=== PATIENT | female | born 1950 | race Caucasian/White ===

== ENCOUNTER → 2019-03-25 | Outpatient (CLI) | payer OTHER ==
[~2019-03-25] MED LIST: B12/1TAB PO; DESV50TA PO; RIVA20TA2 PO; SOTA120T PO
--- NOTE | 2019-03-29 11:24 | CARD ---
MR#: [id number] Date of Study: 03/25/2019 Ordering Physician: SHABNAM CALDERON, Referring Physician: SHABNAM CALDERON Tech: Ivonne Roy RDCS APPROVED REPORT EXAM: Two-dimensional and M-mode echocardiogram with Doppler and color Doppler. Other Information Quality : Technically LimitedHR: 74bpm Rhythm : NSRTechnically limited study due to body habitus. INDICATION Chest Pain 2D DIMENSIONS RVDd3.4 (2.9-3.5cm)Left Atrium(2D)4.4 (1.6-4.0cm) IVSd1.3 (0.7-1.1cm)Aortic Root(2D)2.6 (2.0-3.7cm) LVDd3.8 (3.9-5.9cm)LVOT Diameter1.8 (1.8-2.4cm) PWd1.2 (0.7-1.1cm)LVDs2.0 (2.5-4.0cm) FS (%) 47.6 %SV50.2 ml Aortic Valve AoV Peak Edward.196.2cm/sAoV VTI44.6cm AO Peak GR.15.4mmHgLVOT Peak Edward.168.2cm/s AO Mean GR.9mmHgAVA (VMAX)2.18cm2 ROGER (VTI)2.20cm2 Mitral Valve MV E Myppvzmd151.4cm/sMV E Peak Gr.124mmHg MV DECEL NMFR950wkQW A Mymgjtdp337.5cm/s MV E Mean Gr.5mmHgE/A Ratio1.3 Pulmonary Valve PV Peak Ibuwfoxu685.5cm/s Tricuspid Valve TR P. Xlvveegm017yx/sRAP QELZUSER8iqKk TR Peak Gr.33qsTfFZAP23usGk Pulmonary Vein S1 Gbpkutzz14.1cm/sD2 Snqtnhac94.6cm/s PVa rvfabqlo677srjp LEFT VENTRICLE The left ventricle is normal size. There is mild concentric left ventricular hypertrophy. The left ve ntricular systolic function is normal. The ejection fraction is 65-70%. There is normal LV segmental wall motion. Transmitral Doppler flow pattern is Grade II-pseudonormal filling dynamics. RIGHT VENTRICLE The right ventricle is normal size. There is normal right ventricular wall thickness. The right ventr icular systolic function is normal. ATRIA The left atrium is mildly dilated. The right atrium size is normal. The interatrial septum is intact with no evidence for an atrial septal defect or patent foramen ovale as noted on 2-D or Doppler imagi ng. AORTIC VALVE The aortic valve is mildly sclerotic. The aortic valve is trileaflet. Doppler and Color Flow revealed no significant aortic regurgitation. There is no significant aortic valvular stenosis. MITRAL VALVE Mitral annular calcification is mild. There is no evidence of mitral valve prolapse. There is mild mi tral valve stenosis. Calculated mitral valve area is 1.9 cm2 with maximum pressure gradient of 15 mmH g and mean pressure gradient of 5.5 mmHg. Doppler and Color-flow revealed mild mitral regurgitation. TRICUSPID VALVE The tricuspid valve is normal in structure and function. Doppler and Color Flow revealed mild tricusp id regurgitation. The PA pressure was estimated at 32 mmHg. There is no tricuspid valve prolapse or v egetation. There is no tricuspid valve stenosis. PULMONIC VALVE The pulmonic valve is not well visualized. GREAT VESSELS The aortic root is normal in size. The ascending aorta is normal in size. The IVC was not visualized. PERICARDIAL EFFUSION There is no evidence of significant pericardial effusion. Critical Notification Critical Value: No <Conclusion> The left ventricle is normal size. The left ventricular systolic function is normal. The ejection fraction is 65-70%. There is mild concentric left ventricular hypertrophy. There is no significant aortic valvular stenosis. Doppler and Color Flow revealed no significant aortic regurgitation. Doppler and Color-flow revealed mild mitral regurgitation. There is mild mitral valve stenosis. Calculated mitral valve area is 1.9 cm2 with maximum pressure gradient of 15 mmHg and mean pressure g radient of 5.5 mmHg. Doppler and Color Flow revealed mild tricuspid regurgitation. The PA pressure was estimated at 32 mmHg. Signed by : Rickey Hanson MD Electronically Approved : 03/25/2019 11:54:09
== END | disposition home or self-care (01) ==
LOC: ECHO 14:00
PROVIDERS: ATTEND Internal Medicine Cardiovascular Disease
DX: I08.3 Combined rheumatic disorders of mitral, aortic and tricuspid valves (principal)
CPT/HCPCS: 93306

== ENCOUNTER → 2019-03-31 | Outpatient (CLI) | payer MEDICARE ==
--- NOTE | 2019-03-31 17:32 | RAD ---
PELVIS W/TV History: Postmenopausal bleeding Comparison: None. Findings: Multiple transabdominal sonographic images of pelvis are submitted. Uterus measured 10.6 x 4.8 x 5.6 cm. Ovaries are not well-visualized this portion of exam due to bowel gas. Transvaginal ultrasound: Multiple transvaginal sonographic images of the pelvis are submitted. Endometrium is thickened about 1.1 cm, not associated with significant hypervascularity on color Doppler imaging. Neither ovary is well visualized due to bowel gas and bowel. No free fluid is demonstrated. Impression: 1. Endometrium is thickened about 1.1 cm, could be seen with hyperplasia although neoplasm not excluded. 2. Ovaries are not visualized on this exam. Electronically signed by: Hector Downey MD (03/31/2019 5:29 PM) [id number]
== END | disposition home or self-care (01) ==
LOC: US 13:36 → EDUNIT# 15:30
PROVIDERS: ATTEND Obstetrics & Gynecology
DX: N95.0 Postmenopausal bleeding (principal)
CPT/HCPCS: 76830; 76856

== ENCOUNTER 2019-06-03 07:59 | Day surgery (SDC) | payer OTHER ==
[~2019-06-03 07:59] MED LIST changes: +HYDROmorphone 2 MG/ML VIAL IV PRN; +IV RINGERS,LACTATED 1000ML 1,000 ML IV SCH; +MISO200T PO; +MORPHINE SULFATE 2 MG/ML VIAL. IV PRN; +PROCHLORPERAZINE 10 MG/2 ML VIAL. IV PRN; +VALS320T2 PO; +fentaNYL PF VIAL 100 MCG/2 ML VIAL IV PRN
[2019-06-03] MEDS ORDERED: LIDOCAINE 2% PF 5 ML VIAL. ONE (08:42)
[2019-06-03] MEDS ORDERED: KETOROLAC 30 MG/ML VIAL. ONE (08:42)
[2019-06-03] MEDS ORDERED: DEXAMETHASONE SOD PHOS 4 MG/ML VIAL ONE (08:42)
[2019-06-03] MEDS ORDERED: ONDANSETRON PF 4 MG/2 ML VIAL. ONE (08:42)
[2019-06-03] MEDS ORDERED: SEVOFLURANE 31 TO 60 MINUTES. IH ONE (08:42)
[2019-06-03] MEDS ORDERED: PROPOFOL 20 ML IV ONE (08:42)
[2019-06-03] MEDS ORDERED: HEPARIN for SUB-Q USE 5,000 UNIT/ML VIAL. SQ ONE (09:00)
[2019-06-03] MEDS ORDERED: NALOXONE 0.4 MG/ML VIAL. IV PRN (10:30)
[2019-06-03] MEDS ORDERED: CALCIUM CARBONATE 500 MG TAB.CHEW PO PRN (10:30)
[2019-06-03] MEDS ORDERED: HYDROcodone/APAP 5/325MG 1 TAB TABLET PO PRN (10:30)
[2019-06-03] MEDS ORDERED: diphenhydrAMINE 50 MG/ML VIAL IV PRN (10:30)
[2019-06-03] MEDS ORDERED: MAG HYDROX/ALUMINUM HYD/SIMETH 30 ML ORAL.SUSP PO PRN (10:30)
[2019-06-03] MEDS ORDERED: SIMETHICONE 80 MG TAB.CHEW PO PRN (10:30)
[2019-06-03] MEDS ORDERED: diphenhydrAMINE HCL 25 MG CAPSULE PO PRN (10:30)
[2019-06-03] MEDS ORDERED: 0.9 % SODIUM CHLORIDE 10 ML DISP.SYRIN. IV PRN (10:30)
--- NOTE | 2019-06-03 10:33 | PDOC ---
BRIEF OPERATIVE NOTE Date: Jun 03, 2019 Pre-Op Diagnosis PMB, endometrial thickening on sonogram Post-Op Diagnosis same plus endometrial polyp Procedure Performed operative hysteroscopy D&C with magnolia clear and polypectomy Surgeon Dr. Vanessa Lopez Anesthesiologist Dr. Peñaloza Anesthesia Type: General Blood Loss <5cc IV Fluid see anesthesia records Urine Output straight cath prior to procedure Specimens Obtained endometrial currettings with polyp Findings uterus sounded to 8cm normal bilateral tubal ostia, endometrial polyp on anterior uterine wall otherwise thin lining around it Complications none Operative Note [id number] VANESSA LOPEZ MD Jun 03, 2019 10:33
--- NOTE | 2019-06-03 11:18 | OP ---
DATE OF SURGERY: 06/03/2019 PREOPERATIVE DIAGNOSES: Postmenopausal bleeding with endometrial thickening on sonogram. POSTOPERATIVE DIAGNOSES: Postmenopausal bleeding with endometrial thickening on sonogram with an endometrial polyp. PROCEDURES: Operative hysteroscopy, D and C with TruClear fluid collection system and a polypectomy. SURGEON: Radha Lopez MD POULTRY PICKING MACHINE TENDER: OR personnel. ANESTHESIOLOGIST: Jaguar Peñaloza MD ANESTHESIA: General. ESTIMATED BLOOD LOSS: Less than 5 mL. URINE OUTPUT: With a straight cathed prior to procedure. INTRAVENOUS FLUIDS: Please see anesthesia records. SPECIMENS: Endometrial curettings with polyps. FINDINGS: The uterus sounded to 8 cm. Normal bilateral tubal ostia. Endometrial polyp on the anterior uterine wall. Otherwise, normal lining that was thinning around it. COMPLICATIONS: None. DESCRIPTION OF PROCEDURE: This patient was taken to the operating room where general anesthesia was placed. The patient was placed in dorsal lithotomy position in Jean Carlos stirrups. The patient's vagina was prepped and draped in the normal sterile fashion and a straight catheter urine had been done prior to my arrival. Upon my arrival, a timeout was performed. Once everyone agreed, an open sidearm bivalve speculum was placed in the patient's vagina. A single-tooth tenaculum was used to grasp the anterior lip of the cervix. The Hegar dilators were used up to 7-8, she sounded to 8 cm. The scope had already been primed that was placed in with the above findings. The small mini soft tissue blade was obtained and passed through the operating channel of the operative hysteroscope and the polypectomy and D and C was done under direct visualization. There were no complications. Once it was all cleaned out, it was a clean uterine cavity. The procedure was ended. The tenaculum was removed. There was minimal bleeding from the tenaculum sites. The speculum was removed and the procedure was ended. The patient was awakened from anesthesia and brought to recovery room in stable condition. RADHA LOPEZ MD DR: JOSE/alex JOB#: [id number] / [id number]
[2019-06-03 11:30] VITALS: BP 141/38
--- NOTE | 2019-06-07 14:06 | PATHOLOGY ---
[facility] Accession Number: [id number] . 01 Material submitted: . uterus - UTERINE CURETTINGS . 01 Clinical history: . Postmenopausal bleeding . 02 Diagnosis: Endometrium "uterine curettings": - Polypoid fragments revealing simple hyperplasia without atypia arising in the background of disordered proliferative phase endometrium. (SHA:maurizio; 06/07/2019) QMS 06/07/2019 0940 Local . 02 Electronically signed: . Syed Peralta MD, Pathologist NPI- [id number] . 01 Gross description: . Received in formalin labeled "[place], [place], uterine curettings," is a 2.7 x 2.2 x 0.2 cm aggregate of kirby-brown soft tissue fragments. The specimen is submitted entirely in cassette A1. ([facility]; 06/04/2019) XDC/XDC 06/04/2019 0726 Local . 02 Pathologist provided ICD-10: N85.01, N85.9 . 02 CPT . 673187 Specimen Comment: A courtesy copy of this report has been sent to [phone], [phone] Specimen Comment: [id number] Specimen Comment: Report sent to and Performed at: 01 [facility] [address], [place] [id number] MD Ross Adams MD Phone: [phone] Performed at: 02 [facility] [address], [place] [id number] MD Nico Moeller MD Phone: [phone]
== END 2019-06-03 11:51 | disposition home or self-care (01) ==
LOC: SURG 07:59
PROVIDERS: ATTEND Obstetrics & Gynecology
DX: N95.0 Postmenopausal bleeding (principal); N84.0 Polyp of corpus uteri; I10 Essential (primary) hypertension; I48.91 Unspecified atrial fibrillation; F32.9 Major depressive disorder, single episode, unspecified; E66.01 Morbid (severe) obesity due to excess calories; Z68.42 Body mass index [BMI] 45.0-49.9, adult; Z90.11 Acquired absence of right breast and nipple; Z98.51 Tubal ligation status; Z85.3 Personal history of malignant neoplasm of breast
CPT/HCPCS: 58558; A7015; J1100; J1885; J2001; J2405; J2704; 88305

== ENCOUNTER 2019-06-12 12:54 | Emergency (ER) | payer OTHER ==
[~2019-06-12] VITALS: Ht 158.8 cm; Wt 122.5 kg
[~2019-06-12 12:54] MED LIST changes: -HYDROmorphone 2 MG/ML VIAL IV PRN; -IV RINGERS,LACTATED 1000ML 1,000 ML IV SCH; -MORPHINE SULFATE 2 MG/ML VIAL. IV PRN; -PROCHLORPERAZINE 10 MG/2 ML VIAL. IV PRN; -fentaNYL PF VIAL 100 MCG/2 ML VIAL IV PRN
[2019-06-12] MEDS ORDERED: IV NORMAL SALINE 1000ML BAG 1,000 ML IV ONE (13:15)
[2019-06-12 13:58] LABS: BASO # 0.1 x10^3/uL (0.0-0.2); BASO % 1 % (0-3); EOS # 0.2 x10^3/uL (0.0-0.7); EOS % 2 % (0-3); HEMATOCRIT 36.3 % (36.0-47.0); LYMPH # 2.1 x10^3/uL (1.0-4.8); LYMPH % 24 % (24-48); MEAN CORPUSCULAR HEMOGLOBIN 31 pg (25-35); MEAN CORPUSCULAR HGB CONC 33 g/dL (31-37); MEAN CORPUSCULAR VOLUME 92 fL (79-100); MONO # 0.8 x10^3/uL (0.0-1.1); MONO % 9 % (0-9); NEUT # 5.7 x10^3/uL (1.8-7.7); NEUT % 64 % (31-73); PLATELET COUNT 326 x10^3/uL (140-400); RED BLOOD COUNT 3.93 x10^6/uL (3.50-5.40); RED CELL DISTRIBUTION WIDTH 14.4 % (11.5-14.5); WHITE BLOOD COUNT 8.8 x10^3/uL (4.0-11.0)
[2019-06-12 15:00] VITALS: BP 144/63
--- NOTE | 2019-06-12 15:05 | PHYS DOC ---
Past Medical History Past Medical History: A-Fib, High Cholesterol, Hypertension Past Surgical History: Other Additional Past Surgical Histo: D&C Additional Information: Nonsmoker Alcohol Use: None Drug Use: None Adult General Chief Complaint Chief Complaint: VAGINAL BLEEDING HPI HPI 68-year-old female presents with report of vaginal bleeding which is been ongoing 3 days. Patient with history of D&C for thickened endometrium and endometrial polyp which was performed by Dr. Lopez on 06/03/2019. Patient with history of atrial fibrillation. Reports therefore treated with Xarelto. Reports had been off Xarelto for her procedure and restarted the medication on 06/10/19. Denies dizziness or lightheadedness. Denies trauma. Reports concern for continued bleeding which seems to have become worse. Denies fever/chills. Reports was unable to contact FLATWORK SUPERVISOR yesterday despite calling and leaving message with office. Review of Systems Review of Systems Constitutional: Denies fever or chills Eyes: Denies redness or eye pain HENT: Denies nasal congestion or sore throat Respiratory: Denies cough or shortness of breath Cardiovascular: Denies chest pain or palpitations GI: Denies abdominal pain, nausea, or vomiting : Denies dysuria or hematuria FLATWORK SUPERVISOR: Reports vaginal bleeding Musculoskeletal: Denies back pain or joint pain Integument: Denies rash or skin lesions Neurologic: Denies headache, focal weakness or sensory changes Complete systems were reviewed and found to be within normal limits, except as documented in this note. Current Medications Current Medications Current Medications Medications (Trade) Dose Ordered Sig/Yanet Start Time Stop Time Status Last Admin Dose Admin Sodium Chloride 1,000 ml @ 1,000 mls/hr 1X ONCE 06/12/19 13:15 06/12/19 14:27 DC Allergies Allergies Allergies Coded Allergies Type Severity Reaction Last Updated Verified lisinopril Adverse Reaction Intermediate cough 06/03/19 Yes phenobarbital Adverse Reaction Intermediate ANXIOUS 06/03/19 Yes Physical Exam Physical Exam Constitutional: Well developed, well nourished, no acute distress, non-toxic appearance HENT: Normocephalic, atraumatic, oropharynx moist Eyes: Conjunctiva normal, no discharge Neck: Normal range of motion, no tenderness, supple Cardiovascular: Heart rate normal, regular rhythm Lungs & Thorax: Bilateral breath sounds clear to auscultation, no wheezing Abdomen: Soft, no tenderness Pelvic: Technical Consultant RN, No CMT, no adenxal tenderness, blood clots noted in vaginal vault. Skin: Warm, dry, no erythema, no rash Extremities: No tenderness, ROM intact, no edema Neurologic: Alert and oriented X 3, no focal deficits noted Psychologic: Affect normal, judgement normal, Current Patient Data Vital Signs Vital Signs Date Time Temp Pulse Resp B/P (MAP) Pulse Ox O2 Delivery O2 Flow Rate FiO2 06/12/19 15:00 62 18 144/63 (90) 96 Room Air 06/12/19 13:00 98.5 98.5 Lab Values Laboratory Tests Test 06/12/19 13:35 White Blood Count 8.8 x10^3/uL (4.0-11.0) Red Blood Count 3.93 x10^6/uL (3.50-5.40) Hemoglobin 12.0 g/dL (12.0-15.5) Hematocrit 36.3 % (36.0-47.0) Mean Corpuscular Volume 92 fL (79-100) Mean Corpuscular Hemoglobin 31 pg (25-35) Mean Corpuscular Hemoglobin Concent 33 g/dL (31-37) Red Cell Distribution Width 14.4 % (11.5-14.5) Platelet Count 326 x10^3/uL (140-400) Neutrophils (%) (Auto) 64 % (31-73) Lymphocytes (%) (Auto) 24 % (24-48) Monocytes (%) (Auto) 9 % (0-9) Eosinophils (%) (Auto) 2 % (0-3) Basophils (%) (Auto) 1 % (0-3) Neutrophils # (Auto) 5.7 x10^3/uL (1.8-7.7) Lymphocytes # (Auto) 2.1 x10^3/uL (1.0-4.8) Monocytes # (Auto) 0.8 x10^3/uL (0.0-1.1) Eosinophils # (Auto) 0.2 x10^3/uL (0.0-0.7) Basophils # (Auto) 0.1 x10^3/uL (0.0-0.2) Laboratory Tests 06/12/19 13:35 EKG EKG [] Radiology/Procedures Radiology/Procedures [] Course & Med Decision Making Course & Med Decision Making Pertinent Lab studies reviewed. (See chart for details) Patient presents with history of D&C on 06/03/2019 who was recently restarted on her Xarelto. Patient with subsequent vaginal bleeding. H&H stable. Vital signs stable. Pelvic exam performed with some blood clots noted in vaginal vault without excessive continued his bleeding. Discussed case with Dr. Lopez (FLATWORK SUPERVISOR) who will see patient in office early next week. Patient stable for discharge with outpatient follow-up with PCP last FLATWORK SUPERVISOR. Discussed findings and plan with patient and family, who acknowledge under standing and agreement. Dragon Disclaimer Dragon Disclaimer This electronic medical record was generated, in whole or in part, using a voice recognition dictation system. Departure Departure Impression: Primary Impression: Post-operative hemorrhage Disposition: 01 HOME, SELF-CARE Condition: STABLE Referrals: MANDI MAYER MD (PCP) RADHA LOPEZ MD Patient Instructions: Postsurgical Bleeding Additional Instructions: Call and make an appointment to follow-up with your FLATWORK SUPERVISOR. She recommends continuing your Xarelto at this time. Problem Qualifiers Primary Impression: Post-operative hemorrhage Surgical complication system/body Area: genitourinary Procedure type: genitourinary Qualified Codes: N99.820 - Postprocedural hemorrhage of a genitourinary system organ or structure following a genitourinary system procedure FRANCIS BARNHART DO Jun 12, 2019 15:05
== END 2019-06-12 15:15 | disposition home or self-care (01) ==
LOC: ER 12:54
DX: N99.820 Postprocedural hemorrhage of a genitourinary system organ or structure following a genitourinary system procedure (principal); I48.91 Unspecified atrial fibrillation; E78.00 Pure hypercholesterolemia, unspecified; I10 Essential (primary) hypertension; Z88.8 Allergy status to other drugs, medicaments and biological substances; Y83.8 Other surgical procedures as the cause of abnormal reaction of the patient, or of later complication, without mention of misadventure at the time of the procedure
CPT/HCPCS: 36415; 85025; 99283

== ENCOUNTER 2020-12-01 18:57 | Emergency (ER) | payer OTHER ==
[~2020-12-01] VITALS: Ht 157.5 cm; Wt 120.0 kg
--- NOTE | 2020-12-01 19:14 | PHYS DOC ---
Past Medical History Past Medical History: A-Fib, High Cholesterol, Hypertension Past Surgical History: Other Additional Past Surgical Histo: D&C Smoking Status: Never Smoker Alcohol Use: None Drug Use: None General Adult EDM: Chief Complaint: SHORTNESS OF BREATH HPI: HPI: Patient is a 70 year old female past medical history of A. fib hypertension anxiety depression presents with a chief complaint of heart problems. Patient states she is here because of her A. fib. Patient states for the last 3 days she has noticed her heart race. She states she has associated shortness of breath with dizziness. She describes having butterflies in her chest. Patient denies any chest pain. She is taking her sotalol as prescribed. Review of Systems: Review of Systems: Review of systems: Constitutional symptoms- No fever, no chills. Eyes- No Discharge, No Visual Loss Respiratory symptoms- Positive shortness of breath, No wheezing, No Dyspnea on Exertion Cardiovascular Systems; Positive chest pain, Positive Palpitations, No syncope Gastrointestinal symptoms: NO abdominal pain, no nausea, no vomiting or diarrhea. Genitourinary symptoms: No dysuria. Musculoskeletal symptoms: No back pain No extremity pain. NEUROLOGICAL Symptoms: No headache, no generalized weakness; No focal Weakness Skin: No rash. Heart Score: C/O Chest Pain: Yes HEART Score for Chest Pain: HEART Score for Chest Pain Response (Comments) Value History Slighlty/Non-Suspicious 0 ECG Normal 0 Age > 65 2 Risk Factors 1 or 2 Risk Factors 1 Troponin < Normal Limit 0 Total 3 Risk Factors: Risk Factors: DM, Current or recent (<one month) smoker, HTN, HLP, family history of CAD, obesity. Risk Scores: Score 0 - 3: 2.5% MACE over next 6 weeks - Discharge Home Score 4 - 6: 20.3% MACE over next 6 weeks - Admit for Clinical Observation Score 7 - 10: 72.7% MACE over next 6 weeks - Early Invasive Strategies Allergies: Allergies: Allergies Coded Allergies Type Severity Reaction Last Updated Verified lisinopril Adverse Reaction Intermediate cough 06/03/19 Yes phenobarbital Adverse Reaction Intermediate ANXIOUS 06/03/19 Yes Physical Exam: PE: General: alert, no acute distress. Skin: warm, dry and intact. HENT: bilateral external ears normal, oropharynx moist, nose normal. Head:: Normocephalic, atraumatic. Neck: Trachea midline. Eyes: EOMI, Normal conjunctiva, No drainage CARDIOVASCULAR: Regular rate and rhythm RESPIRATORY: No respiratory distress Back: Full range of motion. Skin: Warm, dry, no erythema, no rash. MUSCULOSKELETAL: Full range of motion of bilateral upper and lower extremities. GASTROINTESTINAL: Abdomen soft without rebound or guarding. NEUROLOGICAL: Alert and noted to person, place and time. No neurological deficits observed Psychiatric: Cooperative. Normal judgment EKG: EKG: [] Performed at 1906 Rate [address] elevation No ST depression No acute AL Radiology/Procedures: Radiology/Procedures: [] Impression: Exam: Chest one view INDICATION: Shortness of breath TECHNIQUE: Frontal view of the chest Comparisons: None FINDINGS: Heart is mildly enlarged. Pulmonary vessels are within normal limits. The lung and pleural spaces are clear. IMPRESSION: No acute pulmonary process. Course & Med Decision Making: Course & Med Decision Making Pertinent Labs and Imaging studies reviewed. (See chart for details) 2111 shelter monitor Heart rate 80 A. fib Pulse oximetry 100% on room air [] Patient was evaluated for chief complaint. Work-up consisted of laboratory analysis radiologic imaging and EKG. Results reviewed and discussed with patient. X-ray cardiomegaly no focal infiltrates no pulmonary edema BNP greater than 2000 Patient's EKG showed A. fib RVR with no acute ischemic changes. On phototypesetting equipment monitor patient was as high as 113 bpm. Patient was treated with Cardizem 20 mg IV push with rate control. Patient's h eart rate posttreatment in the 70s A. fib rate controlled. Despite improvement of patient's heart rate she still states she feels the same. Discussed all results with patient. Discussed hospitalization versus discharge home. Patient states she would like to go home. Advised to take all home medications as prescribed. Will place patient on Lasix 20 mg for 7 days. To follow-up with cardiology. Lamar Disclaimer: Lamar Disclaimer: This electronic medical record was generated, in whole or in part, using a voice recognition dictation system. Departure Departure Impression: Primary Impression: Afib Additional Impression: Elevated brain natriuretic peptide (BNP) level Disposition: 01 HOME / SELF CARE / HOMELESS Condition: STABLE Referrals: MANDI MAYER MD (PCP) Patient Instructions: Atrial Fibrillation, BNP, Brain Natriuretic Peptide Scripts Furosemide (LASIX) 20 Mg Tablet 1 TAB PO DAILY for 7 Days, #7 TAB 0 Refills Prov: REN MOBLEY DO 12/01/20 Furosemide (LASIX) 20 Mg Tablet 1 TAB PO DAILY for 7 Days, #7 TAB 0 Refills Prov: REN MOBLEY DO 12/01/20 REN MOBLEY DO Dec 01, 2020 19:14
[2020-12-01 19:35] LABS: BASO # 0.1 x10^3/uL (0.0-0.2); BASO % 1 % (0-3); EOS # 0.1 x10^3/uL (0.0-0.7); EOS % 2 % (0-3); HEMATOCRIT 35.8 % (36.0-47.0); HEMOGLOBIN 11.7 g/dL (12.0-15.5); LYMPH # 1.2 x10^3/uL (1.0-4.8); LYMPH % 18 % (24-48); MEAN CORPUSCULAR HEMOGLOBIN 29 pg (25-35); MEAN CORPUSCULAR HGB CONC 33 g/dL (31-37); MEAN CORPUSCULAR VOLUME 89 fL (79-100); MONO # 0.7 x10^3/uL (0.0-1.1); MONO % 11 % (0-9); NEUT # 4.6 x10^3/uL (1.8-7.7); NEUT % 69 % (31-73); PLATELET COUNT 286 x10^3/uL (140-400); RED BLOOD COUNT 4.03 x10^6/uL (3.50-5.40); RED CELL DISTRIBUTION WIDTH 14.2 % (11.5-14.5); WHITE BLOOD COUNT 6.6 x10^3/uL (4.0-11.0)
[2020-12-01 19:48] LABS: CALCIUM 9.3 mg/dL (8.5-10.1); CREATININE 1.1 mg/dL (0.6-1.0); GFR 49.4
[2020-12-01 19:55] LABS: ALBUMIN 3.4 g/dL (3.4-5.0); ALBUMIN/GLOBULIN RATIO 0.8 (1.0-1.7); TOTAL BILIRUBIN 0.4 mg/dL (0.2-1.0); TOTAL PROTEIN 7.5 g/dL (6.4-8.2)
--- NOTE | 2020-12-01 20:01 | EKG ---
[facility] [address] [place] [address] Test Date: 2020-12-01 Test Time: 19:06:53 Pat Name: VALENTINO TURCIOS Department: Room: Gender: F Geriatric Nurse Assistant: : 1950 Requested By: REN MOBLEY Order Number: [id number] Reading MD: Measurements Intervals Gary Rate: 103 P: AR: QRS: 43 QRSD: 106 T: 8 QT: 350 QTc: 461 Interpretive Statements IRREGULAR RHYTHM, NO P-WAVE FOUND ST & T ABNORMALITY, CONSIDER ANTERIOR ISCHEMIA OR LEFT VENTRICULAR STRAIN ABNORMAL ECG RI6.02 No previous ECG available for comparison
[2020-12-01] MEDS ORDERED: FUROSEMIDE 40 MG/4 ML VIAL. IVP ONE (20:15)
--- NOTE | 2020-12-01 20:18 | RAD ---
Exam: Chest one view INDICATION: Shortness of breath TECHNIQUE: Frontal view of the chest Comparisons: None FINDINGS: Heart is mildly enlarged. Pulmonary vessels are within normal limits. The lung and pleural spaces are clear. IMPRESSION: No acute pulmonary process. Electronically signed by: Chandu Cortes MD (12/01/2020 8:15 PM) [facility]
[2020-12-01 20:32] VITALS: BP 148/59
[2020-12-01] MEDS ORDERED: FURO-69 PO ×2 (21:37→21:39)
[2020-12-04] MEDS ORDERED: AMIO200T6 PO (15:15)
== END 2020-12-01 21:43 | disposition home or self-care (01) ==
LOC: ER 18:57
DX: I48.91 Unspecified atrial fibrillation (principal); R79.89 Other specified abnormal findings of blood chemistry; E78.00 Pure hypercholesterolemia, unspecified; I10 Essential (primary) hypertension; Z88.8 Allergy status to other drugs, medicaments and biological substances
CPT/HCPCS: 36415; 71045; 80053; 83880; 84484; 85025; 93005; 96374; 96375; 99285; J1940; J3490

== ENCOUNTER → 2021-02-13 | Outpatient (CLI) | payer OTHER ==
[2020-12-04 15:33] VITALS: BP 158/71
[~2021-02-13] MED LIST changes: +AMIO200T6 PO; +FURO-69 PO
--- NOTE | 2021-02-14 09:58 | SLEEP ---
DATE OF STUDY: 02/13/2021 HOME SLEEP STUDY ATTENDING PHYSICIAN: Dr. Mayer. The patient is a 70-year-old who weighs 268 pounds with a BMI of 49. The patient underwent home sleep study performed by [facility]. Total recording time was 703 minutes. During the night study, the patient had 30 mixed apneas, 6 obstructive apneas, 22 central apneas and 45 hypopneas. The patient's AHI was 10.7 per hour. Nocturnal oximetry study revealed an average oxygen saturation 92%, the lowest of 82%. A 66 minutes were spent with oxygen saturation less than 90%. Mean heart rate 84 beats per minute. IMPRESSION: 1. Mild obstructive sleep apnea at an AHI of 10.7 per hour. 2. Nocturnal hypoxia secondary to obstructive sleep apnea. RECOMMENDATIONS: 1. Patient has mild YASMINE. Weight loss is initially recommended. 2. If the patient has comorbid conditions or is clinically symptomatic, then consider doing CPAP titration. 3. Avoid SUSPENSION CORD TIER depressant. 4. Cautioned regarding driving until symptoms of sleep apnea resolve with above recommendation. TYSON DR: González TID: [id number] CC: MANDI MAYER MD
== END ==
LOC: RT 13:29
PROVIDERS: ATTEND Internal Medicine Cardiovascular Disease
DX: G47.33 Obstructive sleep apnea (adult) (pediatric) (principal)
CPT/HCPCS: G0399

== ENCOUNTER → 2021-02-27 | Outpatient (CLI) | payer OTHER ==
[2020-12-04 15:33] VITALS: BP 158/71
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
== END ==
LOC: RAD 14:02
PROVIDERS: ATTEND Family Medicine
DX: M47.812 Spondylosis without myelopathy or radiculopathy, cervical region (principal); M47.816 Spondylosis without myelopathy or radiculopathy, lumbar region; M43.17 Spondylolisthesis, lumbosacral region; M46.02 Spinal enthesopathy, cervical region; V89.2XXA Person injured in unspecified motor-vehicle accident, traffic, initial encounter
CPT/HCPCS: 72040; 72072; 72100

== ENCOUNTER → 2021-03-20 | Outpatient (CLI) | payer OTHER ==
[2021-03-20] VITALS (9 sets, daily range): BP systolic 140–157; BP diastolic 46–110
[~2021-03-20] VITALS: Ht 157.5 cm; Wt 121.8 kg
[~2021-03-20] MED LIST changes: +IOHEXOL 300 MG/ML 100ML VIAL. ONE; +IOHEXOL 350 MG/ML 100 ML VIAL. IART ONE; +IV 1/2 NORMAL SALINE 1,000 ML IV SCH; +LIDOCAINE 1% Multi-Dose 20 ML VIAL. INJ ONE; +LIDOCAINE 1% Multi-Dose 20 ML VIAL. ONE; +MIDAZOLAM HCL/PF 2 MG/2 ML VIAL. IV ONE; +MIDAZOLAM HCL/PF 2 MG/2 ML VIAL. ONE; +fentaNYL PF VIAL 100 MCG/2 ML VIAL IV ONE; +fentaNYL PF VIAL 100 MCG/2 ML VIAL ONE
[2021-03-20 10:04] LABS: HEMATOCRIT 27.2 % (36.0-47.0); HEMOGLOBIN 8.4 g/dL (12.0-15.5); RED BLOOD COUNT 3.34 x10^6/uL (3.50-5.40); RED CELL DISTRIBUTION WIDTH 16.2 % (11.5-14.5)
[2021-03-20 10:24] LABS: CALCIUM 8.9 mg/dL (8.5-10.1); CREATININE 0.9 mg/dL (0.6-1.0); GFR 62.3; POTASSIUM 4.8 mmol/L (3.5-5.1)
[2021-03-20 10:55] LABS: PROTHROMBIN TIME PATIENT 13.1 SEC (11.7-14.0)
--- NOTE | 2021-03-20 13:00 | CARD ---
MR#: [id number] Date of Study: 03/20/2021 Ordering Physician: SHABNAM CALDERON, Referring Physician: SHABNAM CALDERON Tech: RT Vinod(R) APPROVED REPORT Technologist: Regina Ruiz RT(R) Nurse: Tennille Vasquez RN Procedure(s) performed: Right and left heart catheterization, selective coronary angiography and left ventriculography fluoro time: 3.2 min dose: 52 Gycm2 Contrast: 100 ml Mod Sed:34 min INDICATION The indication(s) include : Refractory dyspnea on exertion. [facility] Clinical Frailty Scale [facility] Clinical Frailty Scale: Mildly Frail Heart Failure Heart Failure: No CASE TECHNIQUE IV conscious sedation was used throughout procedure with appropriate monitoring and was performed in the presence of a registered nurse who was an independent trained observer other than the physician p erforming the procedure. During this case, Fluoroscopy and low osmolar contrast were used for imaging . Specimen(s) Removed: No Estimated Blood loss: 20 cc's. PROCEDURE NARRATIVE After explaining the risk, benefits and alternative options, informed consent was obtained from patie nt. Patient was brought to the cardiac [employer] and her right groin was prepped and draped in the us ual fashion. 20 cc of 2% lidocaine was infiltrated into the skin and subcutaneous tissues for local anesthesia. Arterial and venous accesses were obtained in the right common femoral artery and vein r espectively and 6 and 8 Montenegrin sheaths inserted. A 7.5 [place] catheter was then advanced u nder fluoroscopic guidance and intracardiac pressures, oxygen saturations and cardiac output by Flor method measured. 6 Mont[place]grin JL4 and 6 Mont[place]grin JR4 catheters were then used to perform selective angiogr aphy of the left and right coronary arteries. Finally, a 6 Montenegrin pigtail catheter was used to perfo rm left ventriculography. Patient tolerated the procedure well. Hemostasis was achieved using Angio -Seal and manual compression. There were no immediate complications. FINDINGS A. RIGHT HEART CATHETERIZATION 1. Intracardiac pressures: Mean right atrial pressure 12 mmHg, right ventricular pressure 40/10 mmHg , pulmonary artery pressure 32/20 mmHg with mean PA pressure 25 mmHg and mean pulmonary capillary wed ge pressure 23 mmHg. Slightly elevated right and left-sided filling pressures consistent with acute on chronic diastolic heart failure. 2. Oxygen saturations: Right atrium 64%, pulmonary artery 70%, femoral arterial sheath 98%. No evid ence of intracardiac shunt. 3. Cardiac output by Flor method 6.3 L/min. B. LEFT HEART CATHETERIZATION 1. Hemodynamics: Left ventricular end-diastolic pressure 21 mmHg. No pullback gradient across the a ortic valve. 2. Left ventriculography: Normal left ventricle systolic function with ejection fraction estimated a t 65%. No significant mitral emergency. 3. Coronary angiography: a. The left main coronary artery arose from the left sinus of Valsalva, gave rise to the left into d escending and left circumflex arteries and did not show any significant stenosis. b. The left anterior descending artery did not show any significant stenosis. c. The left circumflex artery did not show any significant stenosis. d. The right coronary artery was a large and dominant vessel arising from the right sinus of Valsalv a that did not show any significant stenosis. Conclusion 1. No significant coronary artery disease 2. Mildly elevated right and left-sided filling pressures consistent with mild acute on chronic huber tolic heart failure 3. No evidence of intracardiac shunt 4. Normal left ventricle systolic function with ejection fraction estimated at 65% Recommendations Optimization of medical therapy, regular exercise regimen and weight loss. Signed by : Shabnam Calderon, Electronically Approved : 03/20/2021 12:59:55
--- NOTE | 2021-03-20 15:02 | NUR ---
pt ambulated and tolerated PO. Discharge instructions reviewed with patient. pt stated understanding. Pt home with spouse in private vehicle
== END | disposition home or self-care (01) ==
LOC: CCL 08:41
PROVIDERS: ATTEND Internal Medicine Cardiovascular Disease
DX: R06.09 Other forms of dyspnea (principal); I11.0 Hypertensive heart disease with heart failure; I50.33 Acute on chronic diastolic (congestive) heart failure; I48.91 Unspecified atrial fibrillation; E66.9 Obesity, unspecified; M19.90 Unspecified osteoarthritis, unspecified site; F32.9 Major depressive disorder, single episode, unspecified; Z85.3 Personal history of malignant neoplasm of breast; Z98.51 Tubal ligation status; Z90.710 Acquired absence of both cervix and uterus; Z98.890 Other specified postprocedural states; Z79.899 Other long term (current) drug therapy; Z87.891 Personal history of nicotine dependence; Z88.8 Allergy status to other drugs, medicaments and biological substances; Z20.822 Contact with and (suspected) exposure to COVID-19
CPT/HCPCS: 36415; 80048; 85027; 85610; 87426; 93460; 99152; 99153; C1760; C1769; C1773; C1894; J1644; J2250; J3010; J3490; Q9967; G0269

== ENCOUNTER → 2021-04-05 | Outpatient (CLI) | payer OTHER ==
[2021-03-20 14:45] VITALS: BP 145/46
[~2021-04-05] MED LIST changes: -IOHEXOL 300 MG/ML 100ML VIAL. ONE; -IOHEXOL 350 MG/ML 100 ML VIAL. IART ONE; -IV 1/2 NORMAL SALINE 1,000 ML IV SCH; -LIDOCAINE 1% Multi-Dose 20 ML VIAL. INJ ONE; -LIDOCAINE 1% Multi-Dose 20 ML VIAL. ONE; -MIDAZOLAM HCL/PF 2 MG/2 ML VIAL. IV ONE; -MIDAZOLAM HCL/PF 2 MG/2 ML VIAL. ONE; -fentaNYL PF VIAL 100 MCG/2 ML VIAL IV ONE; -fentaNYL PF VIAL 100 MCG/2 ML VIAL ONE
--- NOTE | 2021-04-05 08:28 | RAD ---
XR CHEST 2V History: COPD, shortness of breath. Comparison: 12/02/2020, 12/01/2020 Technique: PA and lateral chest radiographs. Findings: The lungs are adequately and symmectrically inflated. No airspace consolidation, pleural effusion or pneumothorax. The cardiomediastinal silhoutte and pulmonary vasculature are within normal limits. Sof t tissues are unremarkable. Mild marginal osteophytes in the thoracic spine. No acute osseous abnorma lity. Impression: 1. No acute cardiopulmonary process. Electronically signed by: Javier Thomas MD (04/05/2021 8:25 AM) [id number]
== END ==
LOC: RAD 08:00
PROVIDERS: ATTEND Internal Medicine Pulmonary Disease
DX: J44.9 Chronic obstructive pulmonary disease, unspecified (principal); R06.02 Shortness of breath; M25.78 Osteophyte, vertebrae
CPT/HCPCS: 71046

== ENCOUNTER → 2021-04-17 | Outpatient (CLI) | payer OTHER ==
[2021-03-20 14:45] VITALS: BP 145/46
[~2021-04-17] MED LIST changes: +AMIO200T53 PO; -AMIO200T6 PO
--- NOTE | 2021-04-25 16:14 | RESP ---
DATE OF SERVICE: 04/17/2021 PULMONARY FUNCTION TEST ATTENDING PHYSICIAN: Jackelin Mcclain MD INTERPRETATION: The patient underwent PFTs at [facility]. The patient's FVC was 2.43, which is 83% predicted. FEV1 2.02, which is 90% predicted. The FEV1/FVC ratio was normal. No bronchodilators given. Lung volumes showed a total lung capacity of 179% predicted and residual volume 332% predicted. Diffusion capacity was 89% predicted. IMPRESSION: 1. No significant obstructive airway disease. 2. No bronchodilators given. 3. Lung volumes consistent with hyperinflation and air trapping. 4. Normal diffusion capacity. MERON DR: González TID: [id number] CC: JACKELIN MCCLAIN MD
== END ==
LOC: PF 09:40
PROVIDERS: ATTEND Internal Medicine Pulmonary Disease
DX: R06.02 Shortness of breath (principal)
CPT/HCPCS: 94010; 94726; 94729

== ENCOUNTER → 2021-04-19 | Outpatient (CLI) | payer OTHER ==
[2021-03-20 14:45] VITALS: BP 145/46
[~2021-04-19] MED LIST changes: +CONTRAST GIVEN. MC PRN; +IOHEXOL 350 MG/ML 100 ML VIAL. IV ONE
[2021-04-19 09:32] LABS: CREATININE 0.9 mg/dL (0.6-1.0); GFR 62.3
--- NOTE | 2021-04-19 10:22 | RAD ---
CTA CHEST History: Shortness of air. Rule out PE. Comparison: None. Technique: CTA of the pulmonary arteries with intravenous contrast. 3-D postprocessing was performed. Findings: Pulmonary arteries: No pulmonary embolism. Aorta and great vessels: No aneurysm or dissection of the aortic arch or thoracic aorta. Thyroid: No significant abnormalities. Mediastinum and anusha: Prominent mediastinal lymph nodes measuring up to 1 cm short axis at the right lower pretracheal station. Esophagus: The visualized esophagus is normal. Heart: The heart is normal in size. There is no pericardial effusion. Airways, Lungs, Pleura: Expiratory configuration of the trachea. Bilateral patchy groundglass opaciti es may relate to expiratory technique. No pleural effusion or pneumothorax. Upper abdomen: Left upper pole 8 mm nephrolith. Osseous structures and soft tissues: Within normal limits for age. Impression: 1. No pulmonary embolism, aortic aneurysm or aortic dissection. 2. Diffuse bilateral groundglass opacities likely are related to expiratory technique, however super imposed consolidation cannot be excluded. ------ Exposure: One or more of the following individualized dose reduction techniques were utilized for thi s examination: 1. Automated exposure control 2. Adjustment of the mA and/or kV according to patient size 3. Use of iterative reconstruction technique. Electronically signed by: Javier Thomas MD (04/19/2021 10:20 AM) [id number]
== END ==
LOC: CT 09:05
PROVIDERS: ATTEND Internal Medicine Pulmonary Disease
DX: N20.0 Calculus of kidney (principal); R91.8 Other nonspecific abnormal finding of lung field; R06.02 Shortness of breath
CPT/HCPCS: 36415; 71275; 82565; 84520; Q9967